=== PATIENT | male | born 1980 | race Caucasian/White ===

== ENCOUNTER 2020-09-23 18:51 | Emergency (ER) | payer MEDICAID, SELFPAY ==
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
[2020-09-23 19:15] VITALS: BP 110/67; BP 122/70; PULSE 80; PULSE 90; RESP 18; TEMP 37.1; O2SAT 96; O2SAT 98; BMI 26.7
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
[2020-09-23] MEDS: Lidocaine HCl 1 % MPF 5 ML VIAL SUBCUT (21:25)
[2020-09-23 21:28] VITALS: BP 114/65; PULSE 70; RESP 16; O2SAT 98
--- NOTE | 2020-09-23 22:10 | MHC.CARE ---
CARE team reached out to [facility] at [facility] staff request to clarify plan for patient. [facility] staff reports patient may return at 3am for a 3:30am appointment. They would like any reports such as x-ray from ED visit. They are not able to provide transportation. CARE team will update nurse and attending. Best callback number for [facility] at this time is [phone].
[2020-09-23] MEDS: Amoxicillin/Potassium Clav 875 MG TABLET PO (22:12)
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
--- NOTE | 2020-09-23 23:22 | PC.NURSE ---
REPORT TAKEN FROM MITA ANTON. PATIENT TO GO TO [facility]
--- NOTE | 2020-09-23 23:43 | PC.NURSE ---
PT GIVEN JUICE AND SANDWICH PER REQUEST
[2020-09-24 01:05] VITALS: BP 114/66; PULSE 65; RESP 17; TEMP 36.6; O2SAT 97
== END 2020-09-24 03:08 | disposition home or self-care (01) ==
PROVIDERS: Emergency Provider Internal Medicine
DX: S61.411A Laceration without foreign body of right hand, initial encounter (principal); S60.511A Abrasion of right hand, initial encounter; M79.641 Pain in right hand; Y04.8XXA Assault by other bodily force, initial encounter; Y93.9 Activity, unspecified; Y92.9 Unspecified place or not applicable; Y99.9 Unspecified external cause status; Z23 Encounter for immunization
CPT/HCPCS: 12001; 73130; 90471; 90715; 99284